=== PATIENT | female | born 1975 | race American Indian/Alaskan Native ===

== ENCOUNTER 2019-07-20 11:01 | Emergency (ER) | payer BC ==
--- NOTE | 2019-07-20 12:00 | Emergency Department Report ---
HPI - General Chief Complaint: Syncope Time Seen by Provider: 07/20/19 11:40 - HPI HPI: 44-year-old female presents to the emergency department after she had a near-syncopal episode at work today. She says that she's been having a one-week history of some generalized abdominal pain intermittently. This was associated with some constipation but she says that recently "my bowels started passing." However, today while at work, the patient said that she had some left lower quadrant abdominal and pelvic pain while using the bathroom. She went to walk to her coworkers office and says that she felt hot, sweaty, dizzy. She does not believe that she actually passed out but felt like she was going to. A nurse at work checked her sugar and it was found to be about 500. EMS was called and she says that they found her blood sugar in the 400s. She doesn't history of insulin dependent diabetes, previously on Lantus and something si milar to metformin, but the patient says that she did not have her medications for 3 much this entire year. Recently, the patient saw a physician, who will most likely be her primary care physician, Dr. Ortiz at [facility] and the patient was prescribed her diabetes medications. However secondary to insurance issues she has not yet filled this. She also has a history of hypertension for which she takes enalapril and hydrochlorothiazide. She denies any tobacco or illicit drug use. ED Past Medical Hx - Past Medical History Previous Medical History?: Yes Hx Hypertension: Yes Hx Diabetes: Yes - Surgical History Past Surgical History?: Yes Additional Surgical History: 1990 - Social History Smoking Status: Never Smoker Substance Use Type: None - Medications Home Medications: Home Medications Medication Instructions Recorded Confirmed Last Taken Type Enalapril/Hydrochlorothiazide 1 mg PO QDAY 07/20/19 07/20/19 07/20/19 History [Enalapril-Hctz 10-25 mg Tablet] Nitrofurantoin Donley/M-Cryst 100 mg PO Q12HR #14 capsule 07/20/19 Unknown Rx [Macrobid CAP] metFORMIN [Glucophage] 500 mg PO TID 07/20/19 07/20/19 06/28/19 History ED Review of Systems ROS: Stated complaint: HYPERGLYCEMIA Other details as noted in HPI Comment: All other systems reviewed and negative Constitutional: denies: fever, malaise Eyes: denies: eye pain, vision change ENT: denies: ear pain, throat pain Respiratory: denies: cough, wheezing Cardiovascular: denies: chest pain, palpitations Gastrointestinal: abdominal pain, constipation Genitourinary: denies: dysuria, discharge Musculoskeletal: denies: back pain, arthralgia Skin: denies: rash, lesions Neurological: other (dizziness, near syncope). denies: headache Physical Exam - Physical Exam Vital Signs: Vital Signs 07/20/19 07/20/19 11:15 11:39 Temperature 97.9 F Pulse Rate 80 Respiratory 18 18 Rate Blood Pressure 143/73 O2 Sat by Pulse 100 100 Oximetry Physical Exam: GENERAL: The patient is well-developed well-nourished. HENT: Normocephalic. Atraumatic. Patient has moist mucous membranes. EYES: Extraocular motions are intact. Pupils equal reactive to light bilaterally. No nystagmus. NECK: Supple. Trachea is midline. CHEST/LUNGS: Clear to auscultation. There is no respiratory distress noted. HEART/CARDIOVASCULAR: Regular. There is no tachycardia. There is no murmur. ABDOMEN: Abdomen is soft. Mild LLQ TTP. No guarding. Patient has normal bowel sounds. There is no abdominal distention. SKIN: Skin is warm and dry. NEURO: The patient is awake, alert, and oriented. The patient is cooperative. The patient has no focal neurologic deficits. Normal speech CN II - XII grossly intact. MUSCULOSKELETAL: There is no tenderness or deformity. There is no limitation range of motion. There is no evidence of acute injury. ED Course Vital Signs 07/20/19 07/20/19 11:15 11:39 Temperature 97.9 F Pulse Rate 80 Respiratory 18 18 Rate Blood Pressure 143/73 O2 Sat by Pulse 100 100 Oximetry ED Medical Decision Making - Lab Data Result diagrams: 07/20/19 11:56 07/20/19 11:56 - EKG Data -: EKG Interpreted by Me EKG shows normal: sinus rhythm, axis, intervals, QRS complexes, ST-T waves Rate: tachycardia - EKG Data When compared to previous EKG there are: previous EKG unavailable Interpretation: normal EKG - Radiology Data Radiology results: report reviewed, image reviewed interpreted by me: Abdominal x-ray shows nonspecific nonobstructive bowel gas CT ABDOMEN AND PELVIS WITHOUT CONTRAST INDICATION / CLINICAL INFORMATION: LLQ abd and pelvic pain. TECHNIQUE: Axial CT images were obtained through the abdomen and pelvis without IV contrast. All CT scans at this location are performed using CT dose reduction for ALARA by means of automated exposure control. COMPARISON: None available. FINDINGS: LOWER CHEST: No significant abnormality. LIVER: No significant abnormality. GALLBLADDER: No significant abnormality. BILE DUCTS: No significant abnormality. PANCREAS: No significant abnormality. SPLEEN: No significant abnormality. ADRENALS: No significant abnormality. RIGHT KIDNEY and URETER: No significant abnormality. No renal or ureteral calculi are seen LEFT KIDNEY and URETER: No significant abnormality. No renal or ureteral calculi are seen STOMACH and SMALL BOWEL: No significant abnormality. COLON: No significant abnormality. APPENDIX: No significant abnormality. PERITONEUM: No free fluid. No free air. No fluid collection. LYMPH NODES: No significant adenopathy. AORTA and ARTERIES: No significant abnormality. IVC and VEINS: No significant abnormality. URINARY BLADDER: No significant abnormality. REPRODUCTIVE ORGANS: No significant abnormality. ADDITIONAL FINDINGS: Phleboliths are noted in the pelvis. SKELETAL SYSTEM: No acute osseous abnormalities are seen. IMPRESSION: 1. There is no obstruction, inflammation, or free air. There are no abnormal fluid collections. There are no renal or ureteral calculi. There is no hydronephrosis. - Medical Decision Making Present with a one-week history of abdominal pain that was more generalized at first. However today she had left lower quadrant abdominal and/or pelvic pain and some near-syncope. On examination she does not have any focal, motor or sensory deficits in her cranial nerves are intact. She has reproducible left lower quadrant abdominal tenderness to palpation but otherwise abdomen is soft, nondistended and nontoxic in appearance. Labs have been unremarkable except for a mild urinary tract infection. Patient was started on antibiotics. CT of the abdomen and pelvis does not show any obstruction, inflammation, free air or any other abdominal or pelvic pathology. She'll be discharged home to follow up with primary care and has been given a referral for gastroenterology. She will return to the ER with any worsening symptoms or any acute distress. - Differential Diagnosis diverticulitis, colitis, UTI, nephrolithiasis Critical Care Time: No Critical care attestation.: If time is entered above; I have spent that time in minutes in the direct care of this critically ill patient, excluding procedure time. ED Disposition Clinical Impression: Hyperglycemia Abdominal pain Qualifiers: Abdominal location: generalized Qualified Code(s): R10.84 - Generalized abdominal pain Hypertension Qualifiers: Hypertension type: essential hypertension Qualified Code(s): I10 - Essential (primary) hypertension UTI (urinary tract infection) Qualifiers: Urinary tract infection type: acute cystitis Hematuria presence: with hematuria Qualified Code(s): N30.01 - Acute cystitis with hematuria Disposition: TO HOME OR SELFCARE Is pt being admited?: No Condition: Stable Instructions: Urinary Tract Infection in Women (ED), Abdominal Pain (ED), Hype rtension (ED), Diabetic Hyperglycemia (ED) Additional Instructions: Please follow-up with your primary care physician in the next few days. I am giving you a referral for [facility] for follow-up regarding your abdominal pains. Please take your diabetes medications. Try and stay away from foods are high in sugar, carbohydrates and starches to help with your diabetes. Keep a blood sugar log. Return to the emergency Department with any worsening of your symptoms or any acute distress. Prescriptions: Nitrofurantoin Donley/M-Cryst [Macrobid CAP] 100 mg PO Q12HR #14 capsule Referrals: [facility] [Other] - 2-3 Days [facility] [Provider Group] - 2-3 Days Time of Disposition: 15:56
[2019-07-20 12:10] LABS: Basophils % (Auto) 0.3 % (0.0-1.8); Eosinophils # (Auto) 0.1 K/mm3 (0.0-0.4); Eosinophils % (Auto) 0.5 % (0.0-4.3); Hematocrit 33.3 % (30.3-42.9); Hemoglobin 10.5 gm/dl (10.1-14.3); Lymphocytes # (Auto) 1.3 K/mm3 (1.2-5.4); Lymphocytes % (Auto) 9.2 % (13.4-35.0); Mean Corpuscular HGB Conc 31 % (30-34); Mean Corpuscular Volume 71 fl (79-97); Monocytes # (Auto) 0.6 K/mm3 (0.0-0.8); Platelet Count 424 K/mm3 (140-440); Red Cell Distribution Width 16.1 % (13.2-15.2)
[2019-07-20 12:11] VITALS: BP 153/81
[2019-07-20 12:27] LABS: Alanine Aminotransferase 17 units/L (7-56); Albumin 3.7 g/dL (3.9-5); BUN/Creatinine Ratio 15; Blood Urea Nitrogen 9 mg/dL (7-17); Calcium 8.8 mg/dL (8.4-10.2); Hemolysis Index 4
[2019-07-20] MEDS ORDERED: HumuLIN R IV ONE (12:30)
[2019-07-20 12:42] LABS: Bilirubin,Urine NEG (Negative); Blood,Urine MOD (Negative); Color,Urine Red (Yellow); Urobilinogen,Urine < 2.0 mg/dL (<2.0)
[2019-07-20 12:52] LABS: RBC,Urine > 182.0 /HPF (0.0-6.0)
[2019-07-20] MEDS ORDERED: ROCEPHIN/NS 1 GM/50 ML 1 GM/50 ML BAG IV ONE (12:57)
--- NOTE | 2019-07-20 13:25 | XRay Report ---
ABDOMEN 2 VIEW(S) INDICATION / CLINICAL INFORMATION: Abd pain. COMPARISON: None available. FINDINGS: TUBES / LINES: None. BOWEL GAS PATTERN/EXTRALUMINAL GAS: No significant abnormality. No free air or pneumatosis. ADDITIONAL FINDINGS: There is a calcification projecting over the right renal shadow which may repres ent a small intrarenal stone. IMPRESSION: 1. No acute findings. 2. Probable small right intrarenal stone. Signer Name: Landon Oneill MD Signed: 07/20/2019 1:21 PM Workstation Name: [id number]
--- NOTE | 2019-07-20 15:27 | Cat Scan Report ---
CT ABDOMEN AND PELVIS WITHOUT CONTRAST INDICATION / CLINICAL INFORMATION: LLQ abd and pelvic pain. TECHNIQUE: Axial CT images were obtained through the abdomen and pelvis without IV contrast. All CT scans at [facility] location are performed using CT dose reduction for ALARA by means of automated exposure control. COMPARISON: None available. FINDINGS: LOWER CHEST: No significant abnormality. LIVER: No significant abnormality. GALLBLADDER: No significant abnormality. BILE DUCTS: No significant abnormality. PANCREAS: No significant abnormality. SPLEEN: No significant abnormality. ADRENALS: No significant abnormality. RIGHT KIDNEY and URETER: No significant abnormality. No renal or ureteral calculi are seen LEFT KIDNEY and URETER: No significant abnormality. No renal or ureteral calculi are seen STOMACH and SMALL BOWEL: No significant abnormality. COLON: No significant abnormality. APPENDIX: No significant abnormality. PERITONEUM: No free fluid. No free air. No fluid collection. LYMPH NODES: No significant adenopathy. AORTA and ARTERIES: No significant abnormality. IVC and VEINS: No significant abnormality. URINARY BLADDER: No significant abnormality. REPRODUCTIVE ORGANS: No significant abnormality. ADDITIONAL FINDINGS: Phleboliths are noted in the pelvis. SKELETAL SYSTEM: No acute osseous abnormalities are seen. IMPRESSION: 1. There is no obstruction, inflammation, or free air. There are no abnormal fluid collections. There are no renal or ureteral calculi. There is no hydronephrosis. Signer Name: Ronald Henao MD Signed: 07/20/2019 3:22 PM Workstation Name: [id number]
== END 2019-07-20 16:28 | disposition home or self-care (01) ==
LOC: ED 11:01
DX: E11.65 Type 2 diabetes mellitus with hyperglycemia (principal); N39.0 Urinary tract infection, site not specified; K59.00 Constipation, unspecified; I10 Essential (primary) hypertension; R55 Syncope and collapse; R42 Dizziness and giddiness; Z88.5 Allergy status to narcotic agent; Z79.899 Other long term (current) drug therapy; Z79.84 Long term (current) use of oral hypoglycemic drugs
CPT/HCPCS: 36415; 74019; 74176; 80053; 81001; 82805; 82962; 83690; 84443; 84484; 84703; 85025; 87086; 93005; 93010; 96365; 96375; 99285; J0696; J1815